=== PATIENT | male | born 1940 | race Caucasian/White ===

== ENCOUNTER 2018-11-17 17:55 | Inpatient (IN) | payer MEDICARE, OTHER ==
[~2018-11-17] VITALS: Ht 182.9 cm; Wt 64.9 kg
[2018-11-17 19:00] VITALS: BP 146/70
[2018-11-17] MEDS ORDERED: ACETAMINOPHEN 325 MG TABLET PO PRN (19:45)
[2018-11-17] MEDS ORDERED: DOCUSATE SODIUM 283 MG/5 ML MINI-ENEMA PR PRN (19:45)
[2018-11-17] MEDS ORDERED: QUEtiapine FUMARATE 25 MG TABLET PO PRN (20:00)
[2018-11-17] MEDS: DOCUSATE SODIUM 100 MG CAPSULE PO SCH (21:00)
[2018-11-17] MEDS: SENNA 187 MG TABLET PO SCH (21:00)
[2018-11-17 21:36] VITALS: BP 132/67
[2018-11-17] MEDS: TERAZOSIN HCL 1 MG CAPSULE PO SCH (21:58)
[2018-11-17 22:10] LABS: GLUCOMETER DEV NAME(LOC) 2WR.2; GLUCOSE,POINT OF CARE 201 MG/DL (70-110)
[2018-11-18] VITALS: BP 132/67
[2018-11-18 06:21] LABS: GLUCOMETER DEV NAME(LOC) 2WR.1B; GLUCOSE,POINT OF CARE 115 MG/DL (70-110)
[2018-11-18 07:33] LABS: BASOPHILS % (AUTO) 0.6 % (0.0-2.0); EOSINOPHILS % (AUTO) 2.4 % (1.0-6.0); HEMATOCRIT 31.9 % (41-53); HEMOGLOBIN 10.5 g/dL (13.5-17.5); LYMPHOCYTES % (AUTO) 13.8 % (22.0-44.0); MEAN CORPUSCULAR HEMOGLOBIN 29.2 pg (26.0-34.0); MEAN CORPUSCULAR HGB CONC 32.9 G/dL (31.0-37.0); MEAN CORPUSCULAR VOLUME 89 fL (80-100); MONOCYTES # (AUTO) 0.8 K/uL (0.1-1.0); MONOCYTES % (AUTO) 10.4 % (2.0-9.0); NEUTROPHILS # (AUTO) 5.5 K/uL (1.8-7.7); NEUTROPHILS % (AUTO) 72.8 % (40.0-70.0); PLATELET COUNT (AUTO) 294 K/uL (150-450); RED BLOOD CELL COUNT(AUTO) 3.58 MIL/uL (4.50-5.90); RED CELL DISTRIBUTION WIDTH 18.2 % (11.5-14.5)
[2018-11-18 08:01] LABS: ALANINE AMINOTRANSFERASE 17 U/L (12-78); ALBUMIN 2.8 g/dL (3.4-5.0); ALKALINE PHOSPHATASE 93 U/L (46-116); ANION GAP 14 mmol/L (8-16); ASPARTATE AMINOTRANSFERASE 16 U/L (15-37); BILIRUBIN,TOTAL 0.4 mg/dL (0.1-1.0); CALCIUM, TOTAL 9.3 mg/dL (8.8-10.5); CARBON DIOXIDE 26 mmol/L (22-29); CHLORIDE 98 mmol/L (98-107); CREATININE 0.72 mg/dL (0.60-1.30); GLUCOSE,RANDOM 129 mg/dL (70-110); SODIUM SERUM 138 mmol/L (136-145); TOTAL PROTEIN, SERUM 6.9 g/dL (6.4-8.2); UREA NITROGEN, BLOOD 10 mg/dL (7-18)
[2018-11-18 08:12] LABS: GLOMERULAR FILTR. RATE CALC > 60 mL/min (>60)
[2018-11-18] MEDS: MetFORMIN HCL 500 MG TABLET PO SCH ×2 (08:41→17:38)
[2018-11-18] MEDS: DOCUSATE SODIUM 100 MG CAPSULE PO SCH ×2 (08:50→21:00)
[2018-11-18] MEDS: FAMOTIDINE 20 MG TABLET PO SCH (08:50)
[2018-11-18] MEDS: ASPIRIN 81 MG CHEWABLE TABLET PO SCH (08:50)
[2018-11-18] MEDS ORDERED: SitaGLIPtin PHOSPHATE 25 MG TABLET PO SCH (09:00)
[2018-11-18] MEDS ORDERED: LISINOPRIL 5 MG TABLET PO SCH (09:00)
[2018-11-18 10:44] VITALS: BP 144/79
[2018-11-18] MEDS ORDERED: DEXTROSE 50%-WATER 25 GM/50 ML SYRINGE IVP PRN (11:45)
[2018-11-18] MEDS: INSULIN LISPRO 100 UNITS/ML SQ PRN (13:48)
[2018-11-18 15:00] VITALS: BP 139/74
[2018-11-18 15:16] LABS: GLUCOMETER DEV NAME(LOC) 2WR.2; GLUCOSE,POINT OF CARE 170 MG/DL (70-110)
[2018-11-18] MEDS: SitaGLIPtin PHOSPHATE 25 MG TABLET PO SCH (17:39)
[2018-11-18 18:16] LABS: GLUCOMETER DEV NAME(LOC) 2WR.2; GLUCOSE,POINT OF CARE 122 MG/DL (70-110)
[2018-11-18] MEDS: ROSUVASTATIN CALCIUM 10 MG TABLET PO SCH (20:42)
[2018-11-18] MEDS: TERAZOSIN HCL 1 MG CAPSULE PO SCH (20:42)
[2018-11-18] MEDS: SENNA 187 MG TABLET PO SCH (21:00)
[2018-11-18 21:26] LABS: GLUCOMETER DEV NAME(LOC) 2WR.2; GLUCOSE,POINT OF CARE 126 MG/DL (70-110)
[2018-11-19 02:55] VITALS: BP 156/58
[2018-11-19 06:06] LABS: GLUCOMETER DEV NAME(LOC) 2WR.1B; GLUCOSE,POINT OF CARE 102 MG/DL (70-110)
[2018-11-19] MEDS: MetFORMIN HCL 500 MG TABLET PO SCH ×2 (07:45→16:46)
[2018-11-19] MEDS: FAMOTIDINE 20 MG TABLET PO SCH (09:08)
[2018-11-19] MEDS: ASPIRIN 81 MG CHEWABLE TABLET PO SCH (09:08)
[2018-11-19] MEDS: LISINOPRIL 5 MG TABLET PO SCH (09:08)
[2018-11-19] MEDS ORDERED: SENNA 187 MG TABLET PO PRN (09:15)
[2018-11-19 09:43] VITALS: BP 132/73
[2018-11-19] MEDS ORDERED: FOSI20TA98 PO (10:37)
[2018-11-19] MEDS ORDERED: SITA25 PO (10:37)
[2018-11-19] MEDS ORDERED: LORA10TA7 PO (10:37)
[2018-11-19] MEDS ORDERED: ASPI81TA39 PO (10:37)
[2018-11-19] MEDS ORDERED: METF-960 PO (10:37)
[2018-11-19] MEDS ORDERED: ROSU10TA22 PO (10:37)
[2018-11-19] MEDS ORDERED: AMLO5TAB9 PO (10:37)
[2018-11-19 15:06] VITALS: BP 147/56
[2018-11-19 15:50] LABS: GLUCOMETER DEV NAME(LOC) 2WR.1B; GLUCOSE,POINT OF CARE 105 MG/DL (70-110)
[2018-11-19] MEDS: SitaGLIPtin PHOSPHATE 25 MG TABLET PO SCH (16:46)
[2018-11-19 17:26] LABS: GLUCOMETER DEV NAME(LOC) 2WR.2; GLUCOSE,POINT OF CARE 97 MG/DL (70-110)
[2018-11-19] MEDS: TERAZOSIN HCL 1 MG CAPSULE PO SCH (20:07)
[2018-11-19] MEDS: ROSUVASTATIN CALCIUM 10 MG TABLET PO SCH (20:07)
[2018-11-19 20:21] LABS: GLUCOMETER DEV NAME(LOC) 2WR.1B; GLUCOSE,POINT OF CARE 102 MG/DL (70-110)
[2018-11-20] VITALS: BP 143/74
[2018-11-20 05:36] LABS: GLUCOMETER DEV NAME(LOC) 2WR.2; GLUCOSE,POINT OF CARE 131 MG/DL (70-110)
[2018-11-20] MEDS: MetFORMIN HCL 500 MG TABLET PO SCH ×2 (07:40→17:40)
[2018-11-20] MEDS: FAMOTIDINE 20 MG TABLET PO SCH (07:41)
[2018-11-20] MEDS: LISINOPRIL 5 MG TABLET PO SCH (07:41)
[2018-11-20] MEDS: ASPIRIN 81 MG CHEWABLE TABLET PO SCH (07:41)
[2018-11-20 08:24] VITALS: BP 134/71
[2018-11-20 13:30] LABS: GLUCOMETER DEV NAME(LOC) 2WR.1B; GLUCOSE,POINT OF CARE 113 MG/DL (70-110)
[2018-11-20 15:43] VITALS: BP 125/72
[2018-11-20] MEDS: SitaGLIPtin PHOSPHATE 25 MG TABLET PO SCH (17:40)
[2018-11-20 18:22] LABS: GLUCOMETER DEV NAME(LOC) 2WR.2; GLUCOSE,POINT OF CARE 118 MG/DL (70-110)
[2018-11-20] MEDS: ROSUVASTATIN CALCIUM 10 MG TABLET PO SCH (20:45)
[2018-11-20] MEDS: TERAZOSIN HCL 1 MG CAPSULE PO SCH (20:45)
[2018-11-20 21:51] LABS: GLUCOMETER DEV NAME(LOC) 2WR.1B; GLUCOSE,POINT OF CARE 107 MG/DL (70-110)
[2018-11-20 23:48] VITALS: BP 144/76
[2018-11-21 06:01] LABS: GLUCOMETER DEV NAME(LOC) 2WR.2; GLUCOSE,POINT OF CARE 94 MG/DL (70-110)
[2018-11-21 07:01] VITALS: BP 135/69
[2018-11-21] MEDS: LISINOPRIL 5 MG TABLET PO SCH (07:46)
[2018-11-21] MEDS: MetFORMIN HCL 500 MG TABLET PO SCH ×2 (07:46→17:03)
[2018-11-21] MEDS: FAMOTIDINE 20 MG TABLET PO SCH (07:47)
[2018-11-21] MEDS: ASPIRIN 81 MG CHEWABLE TABLET PO SCH (07:47)
[2018-11-21 12:46] LABS: GLUCOMETER DEV NAME(LOC) 2WR.2; GLUCOSE,POINT OF CARE 108 MG/DL (70-110)
[2018-11-21 16:02] VITALS: BP 140/62
[2018-11-21] MEDS: SitaGLIPtin PHOSPHATE 25 MG TABLET PO SCH (17:03)
[2018-11-21 18:01] LABS: GLUCOMETER DEV NAME(LOC) 2WR.2; GLUCOSE,POINT OF CARE 110 MG/DL (70-110)
[2018-11-21] MEDS: TERAZOSIN HCL 1 MG CAPSULE PO SCH (20:17)
[2018-11-21] MEDS: ROSUVASTATIN CALCIUM 10 MG TABLET PO SCH (20:17)
[2018-11-21 21:36] LABS: GLUCOMETER DEV NAME(LOC) 2WR.1B; GLUCOSE,POINT OF CARE 106 MG/DL (70-110)
[2018-11-22] VITALS: BP 125/60
[2018-11-22 06:02] LABS: GLUCOMETER DEV NAME(LOC) 2WR.1B; GLUCOSE,POINT OF CARE 117 MG/DL (70-110)
[2018-11-22 07:05] VITALS: BP 135/62
[2018-11-22] MEDS: LISINOPRIL 5 MG TABLET PO SCH (07:58)
[2018-11-22] MEDS: MetFORMIN HCL 500 MG TABLET PO SCH ×2 (07:58→17:35)
[2018-11-22] MEDS: FAMOTIDINE 20 MG TABLET PO SCH (07:59)
[2018-11-22] MEDS: ASPIRIN 81 MG CHEWABLE TABLET PO SCH (07:59)
[2018-11-22] MEDS: SitaGLIPtin PHOSPHATE 25 MG TABLET PO SCH (17:35)
[2018-11-22] MEDS: INSULIN LISPRO 100 UNITS/ML SQ PRN (17:37)
[2018-11-22 18:25] LABS: GLUCOMETER DEV NAME(LOC) 2WR.1B; GLUCOSE,POINT OF CARE 101 MG/DL (70-110)
[2018-11-22 18:26] LABS: GLUCOMETER DEV NAME(LOC) 2WR.2; GLUCOSE,POINT OF CARE 152 MG/DL (70-110)
[2018-11-22 18:46] VITALS: BP 109/60
[2018-11-22] MEDS: TERAZOSIN HCL 1 MG CAPSULE PO SCH (21:00)
[2018-11-22] MEDS: ROSUVASTATIN CALCIUM 10 MG TABLET PO SCH (21:00)
[2018-11-23 03:00] VITALS: BP 139/60
[2018-11-23 05:15] LABS: GLUCOMETER DEV NAME(LOC) 2WR.1B; GLUCOSE,POINT OF CARE 106 MG/DL (70-110)
[2018-11-23 07:42] VITALS: BP 132/72
[2018-11-23] MEDS: FAMOTIDINE 20 MG TABLET PO SCH (07:50)
[2018-11-23] MEDS: ASPIRIN 81 MG CHEWABLE TABLET PO SCH (07:50)
[2018-11-23] MEDS: DOCUSATE SODIUM 100 MG CAPSULE PO PRN (07:50)
[2018-11-23] MEDS: MetFORMIN HCL 500 MG TABLET PO SCH ×2 (07:50→16:36)
[2018-11-23] MEDS: LISINOPRIL 5 MG TABLET PO SCH (07:51)
[2018-11-23 16:31] LABS: GLUCOMETER DEV NAME(LOC) 2WR.1B; GLUCOSE,POINT OF CARE 118 MG/DL (70-110)
[2018-11-23] MEDS: SitaGLIPtin PHOSPHATE 25 MG TABLET PO SCH (16:36)
[2018-11-23 16:48] VITALS: BP 127/53
[2018-11-23 17:56] LABS: GLUCOMETER DEV NAME(LOC) 2WR.2; GLUCOSE,POINT OF CARE 118 MG/DL (70-110)
[2018-11-23] MEDS: TERAZOSIN HCL 1 MG CAPSULE PO SCH (20:23)
[2018-11-23] MEDS: ROSUVASTATIN CALCIUM 10 MG TABLET PO SCH (20:23)
[2018-11-24 01:19] VITALS: BP 142/69
[2018-11-24 06:06] LABS: GLUCOMETER DEV NAME(LOC) 2WR.1B; GLUCOSE,POINT OF CARE 110 MG/DL (70-110)
[2018-11-24] MEDS: LISINOPRIL 5 MG TABLET PO SCH (07:49)
[2018-11-24] MEDS: FAMOTIDINE 20 MG TABLET PO SCH (07:50)
[2018-11-24] MEDS: MetFORMIN HCL 500 MG TABLET PO SCH ×2 (07:50→16:40)
[2018-11-24] MEDS: ASPIRIN 81 MG CHEWABLE TABLET PO SCH (07:50)
[2018-11-24 07:52] VITALS: BP 133/69
[2018-11-24 15:51] VITALS: BP 156/78
[2018-11-24] MEDS: SitaGLIPtin PHOSPHATE 25 MG TABLET PO SCH (16:40)
[2018-11-24] MEDS ORDERED: INFLUENZA VIRUS VACCINE QVS 2019-20 (3YR+)/PF 60 MCG/0.5 ML SYRINGE IM ONE (17:00)
[2018-11-24] MEDS: ROSUVASTATIN CALCIUM 10 MG TABLET PO SCH (21:39)
[2018-11-24] MEDS: TERAZOSIN HCL 1 MG CAPSULE PO SCH (21:39)
[2018-11-25 00:26] LABS: GLUCOMETER DEV NAME(LOC) 2WR.2; GLUCOSE,POINT OF CARE 107 MG/DL (70-110)
[2018-11-25 02:00] VITALS: BP 142/65
[2018-11-25 07:56] VITALS: BP 135/66
[2018-11-25] MEDS: MetFORMIN HCL 500 MG TABLET PO SCH ×2 (08:29→17:27)
[2018-11-25] MEDS: ASPIRIN 81 MG CHEWABLE TABLET PO SCH (08:30)
[2018-11-25] MEDS: FAMOTIDINE 20 MG TABLET PO SCH (08:30)
[2018-11-25] MEDS: LISINOPRIL 5 MG TABLET PO SCH (08:30)
[2018-11-25 14:46] LABS: GLUCOMETER DEV NAME(LOC) 2WR.1B; GLUCOSE,POINT OF CARE 96 MG/DL (70-110)
[2018-11-25 16:50] VITALS: BP 136/70
[2018-11-25] MEDS: SitaGLIPtin PHOSPHATE 25 MG TABLET PO SCH (17:27)
[2018-11-25] MEDS: ROSUVASTATIN CALCIUM 10 MG TABLET PO SCH (20:48)
[2018-11-25] MEDS: TERAZOSIN HCL 1 MG CAPSULE PO SCH (20:48)
[2018-11-26 01:47] VITALS: BP 134/66
[2018-11-26 06:46] LABS: GLUCOMETER DEV NAME(LOC) 2WR.2; GLUCOSE,POINT OF CARE 113 MG/DL (70-110)
[2018-11-26 07:10] VITALS: BP 124/66
[2018-11-26] MEDS: ASPIRIN 81 MG CHEWABLE TABLET PO SCH (07:54)
[2018-11-26] MEDS: FAMOTIDINE 20 MG TABLET PO SCH (07:54)
[2018-11-26] MEDS: MetFORMIN HCL 500 MG TABLET PO SCH ×2 (07:54→17:22)
[2018-11-26] MEDS: LISINOPRIL 5 MG TABLET PO SCH (07:54)
[2018-11-26 16:00] VITALS: BP 138/70
[2018-11-26] MEDS: SitaGLIPtin PHOSPHATE 25 MG TABLET PO SCH (17:22)
[2018-11-26] MEDS: ROSUVASTATIN CALCIUM 10 MG TABLET PO SCH (20:26)
[2018-11-26] MEDS: TERAZOSIN HCL 1 MG CAPSULE PO SCH (20:26)
[2018-11-26 20:29] VITALS: BP 140/82
[2018-11-26 23:32] VITALS: BP 122/58
[2018-11-27 06:16] LABS: GLUCOMETER DEV NAME(LOC) 2WR.2; GLUCOSE,POINT OF CARE 124 MG/DL (70-110)
[2018-11-27 07:36] VITALS: BP 124/64
[2018-11-27] MEDS: MetFORMIN HCL 500 MG TABLET PO SCH ×2 (07:54→16:54)
[2018-11-27] MEDS: FAMOTIDINE 20 MG TABLET PO SCH (07:58)
[2018-11-27] MEDS: LISINOPRIL 5 MG TABLET PO SCH (07:58)
[2018-11-27] MEDS: ASPIRIN 81 MG CHEWABLE TABLET PO SCH (07:58)
[2018-11-27] MEDS: SitaGLIPtin PHOSPHATE 25 MG TABLET PO SCH (16:54)
[2018-11-27 18:26] VITALS: BP 128/76
[2018-11-27] MEDS: ROSUVASTATIN CALCIUM 10 MG TABLET PO SCH (20:25)
[2018-11-27] MEDS: TERAZOSIN HCL 1 MG CAPSULE PO SCH (20:25)
[2018-11-28 01:03] VITALS: BP 136/60
[2018-11-28 06:31] LABS: GLUCOMETER DEV NAME(LOC) 2WR.1B; GLUCOSE,POINT OF CARE 127 MG/DL (70-110)
[2018-11-28 07:22] VITALS: BP 129/70
[2018-11-28] MEDS: FAMOTIDINE 20 MG TABLET PO SCH (07:57)
[2018-11-28] MEDS: MetFORMIN HCL 500 MG TABLET PO SCH ×2 (07:57→16:52)
[2018-11-28] MEDS: DOCUSATE SODIUM 100 MG CAPSULE PO PRN (07:57)
[2018-11-28] MEDS: LISINOPRIL 5 MG TABLET PO SCH (07:57)
[2018-11-28] MEDS: ASPIRIN 81 MG CHEWABLE TABLET PO SCH (07:57)
[2018-11-28 15:35] VITALS: BP 127/63
[2018-11-28] MEDS: SitaGLIPtin PHOSPHATE 25 MG TABLET PO SCH (16:51)
[2018-11-28] MEDS: TERAZOSIN HCL 1 MG CAPSULE PO SCH (21:06)
[2018-11-28] MEDS: ROSUVASTATIN CALCIUM 10 MG TABLET PO SCH (21:07)
[2018-11-29 00:23] VITALS: BP 142/69
[2018-11-29] MEDS ORDERED: LISI-660 PO (04:04)
[2018-11-29] MEDS ORDERED: FAMO20 PO (04:06)
[2018-11-29] MEDS ORDERED: TERA1CAP7 PO (04:06)
[2018-11-29 06:05] LABS: GLUCOMETER DEV NAME(LOC) 2WR.1B; GLUCOSE,POINT OF CARE 112 MG/DL (70-110)
[2018-11-29 07:20] VITALS: BP 128/76
[2018-11-29] MEDS: ASPIRIN 81 MG CHEWABLE TABLET PO SCH (07:54)
[2018-11-29] MEDS: MetFORMIN HCL 500 MG TABLET PO SCH (07:54)
[2018-11-29] MEDS: FAMOTIDINE 20 MG TABLET PO SCH (07:54)
[2018-11-29] MEDS: LISINOPRIL 5 MG TABLET PO SCH (07:54)
== END 2018-11-29 13:15 | disposition home or self-care (01) | DRG 85 ==
LOC: 2WR 17:55
PROVIDERS: ADMIT Physical Medicine & Rehabilitation; ATTEND Physical Medicine & Rehabilitation
DX: S06.6X0A Traumatic subarachnoid hemorrhage without loss of consciousness, initial encounter (principal); J96.02 Acute respiratory failure with hypercapnia; S06.5X0A Traumatic subdural hemorrhage without loss of consciousness, initial encounter; S02.19XA Other fracture of base of skull, initial encounter for closed fracture; E11.9 Type 2 diabetes mellitus without complications; R13.12 Dysphagia, oropharyngeal phase; E78.5 Hyperlipidemia, unspecified; I10 Essential (primary) hypertension; I25.10 Atherosclerotic heart disease of native coronary artery without angina pectoris; K59.00 Constipation, unspecified; Z79.899 Other long term (current) drug therapy; Z87.820 Personal history of traumatic brain injury; Z91.81 History of falling; Z93.1 Gastrostomy status; Z98.61 Coronary angioplasty status; Z23 Encounter for immunization; N31.9 Neuromuscular dysfunction of bladder, unspecified; R26.9 Unspecified abnormalities of gait and mobility; Z88.1 Allergy status to other antibiotic agents; Z88.8 Allergy status to other drugs, medicaments and biological substances
CPT/HCPCS: 70450; 87081; 90686; 92507; 92508; 92523; 97110; 97112; 97116; 97150; 97162; 97166; 97530; 97535; 99366

== ENCOUNTER 2018-12-06 17:42 | Inpatient (IN) | payer MEDICARE, OTHER ==
[~2018-12-06] VITALS: Ht 177.8 cm; Wt 64.4 kg
[~2018-12-06 17:42] MED LIST: ASPI81TA39 PO; FAMO20 PO; LISI-660 PO; METF-960 PO; ROSU10TA22 PO; SITA25 PO; TERA1CAP7 PO
[2018-12-06] MEDS ORDERED: MELATONIN 5 MG TABLET PO PRN (20:00)
[2018-12-06] MEDS ORDERED: ACETAMINOPHEN 325 MG TABLET PO PRN (20:00)
[2018-12-06] MEDS ORDERED: SENNA 187 MG TABLET PO SCH (21:00)
[2018-12-06] MEDS ORDERED: DOCUSATE SODIUM 100 MG CAPSULE PO SCH (21:00)
[2018-12-06] MEDS: LevETIRAcetam 500 MG TABLET PO SCH (21:16)
[2018-12-06] MEDS: TERAZOSIN HCL 1 MG CAPSULE PO SCH (21:16)
[2018-12-06] MEDS: ROSUVASTATIN CALCIUM 10 MG TABLET PO SCH (21:16)
[2018-12-06 21:22] VITALS: BP 136/75
[2018-12-06] MEDS ORDERED: SENNA 187 MG TABLET PO PRN (23:00)
[2018-12-07 04:00] VITALS: BP 130/70
[2018-12-07] MEDS: FAMOTIDINE 20 MG TABLET PO SCH (05:57)
[2018-12-07 06:18] LABS: GLUCOMETER DEV NAME(LOC) 2WR.2; GLUCOSE,POINT OF CARE 149 MG/DL (70-110)
[2018-12-07 06:44] LABS: BASOPHILS % (AUTO) 1.1 % (0.0-2.0); EOSINOPHILS % (AUTO) 3.3 % (1.0-6.0); HEMATOCRIT 34.3 % (41-53); HEMOGLOBIN 11.4 g/dL (13.5-17.5); LYMPHOCYTES # (AUTO) 1.4 K/uL (1.0-4.8); LYMPHOCYTES % (AUTO) 20.9 % (22.0-44.0); MEAN CORPUSCULAR HEMOGLOBIN 28.8 pg (26.0-34.0); MEAN CORPUSCULAR HGB CONC 33.3 G/dL (31.0-37.0); MEAN CORPUSCULAR VOLUME 86 fL (80-100); MONOCYTES # (AUTO) 0.6 K/uL (0.1-1.0); MONOCYTES % (AUTO) 9.3 % (2.0-9.0); NEUTROPHILS # (AUTO) 4.5 K/uL (1.8-7.7); NEUTROPHILS % (AUTO) 65.4 % (40.0-70.0); PLATELET COUNT (AUTO) 402 K/uL (150-450); RED BLOOD CELL COUNT(AUTO) 3.97 MIL/uL (4.50-5.90); RED CELL DISTRIBUTION WIDTH 16.9 % (11.5-14.5)
[2018-12-07 06:59] LABS: ALANINE AMINOTRANSFERASE 19 U/L (12-78); ALBUMIN 2.8 g/dL (3.4-5.0); ALKALINE PHOSPHATASE 67 U/L (46-116); ANION GAP 8 mmol/L (8-16); ASPARTATE AMINOTRANSFERASE 18 U/L (15-37); BILIRUBIN,TOTAL 0.3 mg/dL (0.1-1.0); CALCIUM, TOTAL 8.9 mg/dL (8.8-10.5); CARBON DIOXIDE 26 mmol/L (22-29); CHLORIDE 102 mmol/L (98-107); GLUCOSE,RANDOM 147 mg/dL (70-110); POTASSIUM 3.9 mmol/L (3.5-5.1); SODIUM SERUM 136 mmol/L (136-145); TOTAL PROTEIN, SERUM 6.8 g/dL (6.4-8.2)
[2018-12-07 07:00] LABS: GLOMERULAR FILTR. RATE CALC > 60 mL/min (>60)
[2018-12-07 07:05] LABS: UREA NITROGEN, BLOOD 10 mg/dL (7-18)
[2018-12-07] MEDS ORDERED: ASPIRIN 81 MG EC TABLET PO SCH (07:30)
[2018-12-07] MEDS: MetFORMIN HCL 500 MG TABLET PO SCH ×2 (08:00→17:29)
[2018-12-07] MEDS: LevETIRAcetam 500 MG TABLET PO SCH ×2 (08:01→20:40)
[2018-12-07] MEDS: SitaGLIPtin PHOSPHATE 25 MG TABLET PO SCH (08:01)
[2018-12-07] MEDS: LISINOPRIL 5 MG TABLET PO SCH (08:02)
[2018-12-07] MEDS: DOCUSATE SODIUM 100 MG CAPSULE PO PRN (08:02)
[2018-12-07 09:49] VITALS: BP 141/72
[2018-12-07] MEDS ORDERED: LevETIRAcetam 500 MG TABLET PO SCH (11:45)
[2018-12-07 16:04] VITALS: BP 131/71
[2018-12-07 18:32] LABS: GLUCOMETER DEV NAME(LOC) 2WR.2; GLUCOSE,POINT OF CARE 132 MG/DL (70-110)
[2018-12-07] MEDS: TERAZOSIN HCL 1 MG CAPSULE PO SCH (20:40)
[2018-12-07] MEDS: ROSUVASTATIN CALCIUM 10 MG TABLET PO SCH (20:40)
[2018-12-08 00:26] VITALS: BP 134/55
[2018-12-08] MEDS: FAMOTIDINE 20 MG TABLET PO SCH (05:43)
[2018-12-08 05:47] LABS: GLUCOMETER DEV NAME(LOC) 2WR.2; GLUCOSE,POINT OF CARE 126 MG/DL (70-110)
[2018-12-08] MEDS: MetFORMIN HCL 500 MG TABLET PO SCH ×2 (07:48→17:46)
[2018-12-08] MEDS: SitaGLIPtin PHOSPHATE 25 MG TABLET PO SCH (07:48)
[2018-12-08] MEDS: LevETIRAcetam 500 MG TABLET PO SCH ×2 (07:49→20:28)
[2018-12-08] MEDS: LISINOPRIL 5 MG TABLET PO SCH (07:49)
[2018-12-08 08:42] VITALS: BP 138/73
[2018-12-08 16:09] VITALS: BP 106/57
[2018-12-08] MEDS: TERAZOSIN HCL 1 MG CAPSULE PO SCH (20:28)
[2018-12-08] MEDS: ROSUVASTATIN CALCIUM 10 MG TABLET PO SCH (20:28)
[2018-12-08 21:46] LABS: GLUCOMETER DEV NAME(LOC) 2WR.1B; GLUCOSE,POINT OF CARE 110 MG/DL (70-110)
[2018-12-09 00:26] VITALS: BP 103/54
[2018-12-09] MEDS: FAMOTIDINE 20 MG TABLET PO SCH (05:44)
[2018-12-09 05:50] LABS: GLUCOMETER DEV NAME(LOC) 2WR.2; GLUCOSE,POINT OF CARE 132 MG/DL (70-110)
[2018-12-09 07:40] VITALS: BP 137/65
[2018-12-09] MEDS: SitaGLIPtin PHOSPHATE 25 MG TABLET PO SCH (08:05)
[2018-12-09] MEDS: LISINOPRIL 5 MG TABLET PO SCH (08:05)
[2018-12-09] MEDS: LevETIRAcetam 500 MG TABLET PO SCH ×2 (08:05→20:06)
[2018-12-09] MEDS: MetFORMIN HCL 500 MG TABLET PO SCH ×2 (08:05→17:33)
[2018-12-09 15:52] VITALS: BP 116/64
[2018-12-09 17:47] LABS: GLUCOMETER DEV NAME(LOC) 2WR.1B; GLUCOSE,POINT OF CARE 112 MG/DL (70-110)
[2018-12-09] MEDS: ROSUVASTATIN CALCIUM 10 MG TABLET PO SCH (20:06)
[2018-12-09] MEDS: TERAZOSIN HCL 1 MG CAPSULE PO SCH (20:06)
[2018-12-10 02:26] VITALS: BP 126/58
[2018-12-10] MEDS: FAMOTIDINE 20 MG TABLET PO SCH (05:27)
[2018-12-10 06:22] LABS: GLUCOMETER DEV NAME(LOC) 2WR.2; GLUCOSE,POINT OF CARE 115 MG/DL (70-110)
[2018-12-10 08:06] VITALS: BP 138/63
[2018-12-10] MEDS: SitaGLIPtin PHOSPHATE 25 MG TABLET PO SCH (08:12)
[2018-12-10] MEDS: MetFORMIN HCL 500 MG TABLET PO SCH ×2 (08:13→17:27)
[2018-12-10] MEDS: LevETIRAcetam 500 MG TABLET PO SCH ×2 (08:13→20:04)
[2018-12-10] MEDS: LISINOPRIL 5 MG TABLET PO SCH (08:13)
[2018-12-10 16:02] VITALS: BP 122/67
[2018-12-10 18:37] LABS: GLUCOMETER DEV NAME(LOC) 2WR.2; GLUCOSE,POINT OF CARE 120 MG/DL (70-110)
[2018-12-10] MEDS: TERAZOSIN HCL 1 MG CAPSULE PO SCH (20:04)
[2018-12-10] MEDS: ROSUVASTATIN CALCIUM 10 MG TABLET PO SCH (20:04)
[2018-12-11 00:23] VITALS: BP 137/71
[2018-12-11] MEDS: FAMOTIDINE 20 MG TABLET PO SCH (05:27)
[2018-12-11 05:42] LABS: GLUCOMETER DEV NAME(LOC) 2WR.1B; GLUCOSE,POINT OF CARE 131 MG/DL (70-110)
[2018-12-11] MEDS: MetFORMIN HCL 500 MG TABLET PO SCH ×2 (07:52→17:33)
[2018-12-11] MEDS: LISINOPRIL 5 MG TABLET PO SCH (07:53)
[2018-12-11] MEDS: LevETIRAcetam 500 MG TABLET PO SCH ×2 (07:53→20:30)
[2018-12-11] MEDS: SitaGLIPtin PHOSPHATE 25 MG TABLET PO SCH (07:53)
[2018-12-11 08:45] VITALS: BP 132/72
[2018-12-11 16:04] VITALS: BP 134/66
[2018-12-11 17:46] LABS: GLUCOMETER DEV NAME(LOC) 2WR.2; GLUCOSE,POINT OF CARE 133 MG/DL (70-110)
[2018-12-11 20:28] VITALS: BP 137/73
[2018-12-11] MEDS: ROSUVASTATIN CALCIUM 10 MG TABLET PO SCH (20:30)
[2018-12-11] MEDS: TERAZOSIN HCL 1 MG CAPSULE PO SCH (20:30)
[2018-12-11] MEDS ORDERED: MELATONIN 5 MG TABLET PO SCH (21:00)
[2018-12-12 00:24] VITALS: BP 141/70
[2018-12-12] MEDS: FAMOTIDINE 20 MG TABLET PO SCH (05:30)
[2018-12-12 06:12] LABS: GLUCOMETER DEV NAME(LOC) 2WR.2; GLUCOSE,POINT OF CARE 116 MG/DL (70-110)
[2018-12-12 07:25] VITALS: BP 148/75
[2018-12-12] MEDS: DOCUSATE SODIUM 100 MG CAPSULE PO PRN (07:55)
[2018-12-12] MEDS: LevETIRAcetam 500 MG TABLET PO SCH ×2 (07:55→20:10)
[2018-12-12] MEDS: LISINOPRIL 5 MG TABLET PO SCH (07:55)
[2018-12-12] MEDS: SitaGLIPtin PHOSPHATE 25 MG TABLET PO SCH (07:55)
[2018-12-12] MEDS: MetFORMIN HCL 500 MG TABLET PO SCH ×2 (07:56→18:00)
[2018-12-12 15:37] VITALS: BP 131/62
[2018-12-12 17:21] LABS: GLUCOMETER DEV NAME(LOC) 2WR.1B; GLUCOSE,POINT OF CARE 112 MG/DL (70-110)
[2018-12-12 20:08] VITALS: BP 144/72
[2018-12-12] MEDS: ROSUVASTATIN CALCIUM 10 MG TABLET PO SCH (20:10)
[2018-12-12] MEDS: TERAZOSIN HCL 1 MG CAPSULE PO SCH (20:10)
[2018-12-12] MEDS ORDERED: QUEtiapine FUMARATE 25 MG TABLET PO SCH ×2 (21:00)
[2018-12-13 01:21] VITALS: BP 115/55
[2018-12-13] MEDS ORDERED: LORazepam 2 MG/ML VIAL IM STA (01:54)
[2018-12-13 06:37] LABS: GLUCOMETER DEV NAME(LOC) 2WR.1B; GLUCOSE,POINT OF CARE 100 MG/DL (70-110)
[2018-12-13 07:34] VITALS: BP 139/68
[2018-12-13] MEDS: FAMOTIDINE 20 MG TABLET PO SCH (09:20)
[2018-12-13] MEDS: LISINOPRIL 5 MG TABLET PO SCH (09:20)
[2018-12-13] MEDS: SitaGLIPtin PHOSPHATE 25 MG TABLET PO SCH (09:20)
[2018-12-13] MEDS: MetFORMIN HCL 500 MG TABLET PO SCH ×2 (09:20→17:14)
[2018-12-13] MEDS: LevETIRAcetam 500 MG TABLET PO SCH ×2 (09:20→20:44)
[2018-12-13 16:05] VITALS: BP 127/64
[2018-12-13 18:16] LABS: GLUCOMETER DEV NAME(LOC) 2WR.2; GLUCOSE,POINT OF CARE 86 MG/DL (70-110)
[2018-12-13] MEDS: TERAZOSIN HCL 1 MG CAPSULE PO SCH (20:44)
[2018-12-13] MEDS: ROSUVASTATIN CALCIUM 10 MG TABLET PO SCH (20:44)
[2018-12-13 20:45] VITALS: BP 153/73
[2018-12-13] MEDS: QUEtiapine FUMARATE 25 MG TABLET PO SCH (22:07)
[2018-12-13 22:09] VITALS: BP 127/61
[2018-12-14 00:32] VITALS: BP 146/68
[2018-12-14] MEDS: FAMOTIDINE 20 MG TABLET PO SCH (05:36)
[2018-12-14 06:27] LABS: GLUCOMETER DEV NAME(LOC) 2WR.2; GLUCOSE,POINT OF CARE 91 MG/DL (70-110)
[2018-12-14] MEDS: MetFORMIN HCL 500 MG TABLET PO SCH ×2 (07:45→17:37)
[2018-12-14] MEDS: SitaGLIPtin PHOSPHATE 25 MG TABLET PO SCH (07:45)
[2018-12-14] MEDS: LevETIRAcetam 500 MG TABLET PO SCH ×2 (07:45→22:10)
[2018-12-14] MEDS: LISINOPRIL 5 MG TABLET PO SCH (07:45)
[2018-12-14 09:27] VITALS: BP 137/66
[2018-12-14 16:50] VITALS: BP 117/55
[2018-12-14 18:22] LABS: GLUCOMETER DEV NAME(LOC) 2WR.2; GLUCOSE,POINT OF CARE 88 MG/DL (70-110)
[2018-12-14] MEDS: QUEtiapine FUMARATE 25 MG TABLET PO SCH (22:10)
[2018-12-14] MEDS: TERAZOSIN HCL 1 MG CAPSULE PO SCH (22:10)
[2018-12-14] MEDS: ROSUVASTATIN CALCIUM 10 MG TABLET PO SCH (22:10)
[2018-12-15 02:55] VITALS: BP 119/59
[2018-12-15] MEDS: FAMOTIDINE 20 MG TABLET PO SCH (05:45)
[2018-12-15 06:21] LABS: GLUCOMETER DEV NAME(LOC) 2WR.1B; GLUCOSE,POINT OF CARE 121 MG/DL (70-110)
[2018-12-15 08:39] VITALS: BP 128/68
[2018-12-15] MEDS: LISINOPRIL 5 MG TABLET PO SCH (09:32)
[2018-12-15] MEDS: LevETIRAcetam 500 MG TABLET PO SCH ×2 (09:32→21:56)
[2018-12-15] MEDS: SitaGLIPtin PHOSPHATE 25 MG TABLET PO SCH (09:32)
[2018-12-15] MEDS: MetFORMIN HCL 500 MG TABLET PO SCH ×2 (09:32→17:40)
[2018-12-15 15:54] VITALS: BP 105/54
[2018-12-15 18:26] LABS: GLUCOMETER DEV NAME(LOC) 2WR.2; GLUCOSE,POINT OF CARE 89 MG/DL (70-110)
[2018-12-15] MEDS: QUEtiapine FUMARATE 25 MG TABLET PO SCH (21:56)
[2018-12-15] MEDS: TERAZOSIN HCL 1 MG CAPSULE PO SCH (21:56)
[2018-12-15] MEDS: ROSUVASTATIN CALCIUM 10 MG TABLET PO SCH (21:56)
[2018-12-15 22:02] VITALS: BP 142/72
[2018-12-16] MEDS ORDERED: QUET25TA PO (00:39)
[2018-12-16] MEDS ORDERED: LEVE500T53 PO (00:39)
[2018-12-16 00:54] VITALS: BP 116/56
[2018-12-16] MEDS: FAMOTIDINE 20 MG TABLET PO SCH (05:28)
[2018-12-16 06:07] LABS: GLUCOMETER DEV NAME(LOC) 2WR.2; GLUCOSE,POINT OF CARE 118 MG/DL (70-110)
[2018-12-16] MEDS: SitaGLIPtin PHOSPHATE 25 MG TABLET PO SCH (07:57)
[2018-12-16] MEDS: MetFORMIN HCL 500 MG TABLET PO SCH (07:57)
[2018-12-16] MEDS: LevETIRAcetam 500 MG TABLET PO SCH (07:58)
[2018-12-16] MEDS: LISINOPRIL 5 MG TABLET PO SCH (07:59)
[2018-12-16 08:00] VITALS: BP 136/74
[2018-12-16] MEDS ORDERED: SODIUM CL IRRIG SOLN BOTTLE 250 ML IRRIG ONE (10:49)
== END 2018-12-16 17:00 | disposition home health service (06) | DRG 86 ==
LOC: 2WR 19:25 → EDBD 19:25
PROVIDERS: ADMIT Physical Medicine & Rehabilitation; ATTEND Physical Medicine & Rehabilitation
DX: S06.5X0A Traumatic subdural hemorrhage without loss of consciousness, initial encounter (principal); E87.1 Hypo-osmolality and hyponatremia; S06.6X0A Traumatic subarachnoid hemorrhage without loss of consciousness, initial encounter; N40.0 Benign prostatic hyperplasia without lower urinary tract symptoms; E11.9 Type 2 diabetes mellitus without complications; E78.5 Hyperlipidemia, unspecified; I10 Essential (primary) hypertension; G47.00 Insomnia, unspecified; I25.10 Atherosclerotic heart disease of native coronary artery without angina pectoris; W18.39XA Other fall on same level, initial encounter; S02.19XA Other fracture of base of skull, initial encounter for closed fracture; Z87.891 Personal history of nicotine dependence; Z87.820 Personal history of traumatic brain injury; Z88.2 Allergy status to sulfonamides; Z88.8 Allergy status to other drugs, medicaments and biological substances; Y93.89 Activity, other specified; Y92.89 Other specified places as the place of occurrence of the external cause; Y99.8 Other external cause status; Z95.5 Presence of coronary angioplasty implant and graft; Z98.49 Cataract extraction status, unspecified eye
CPT/HCPCS: 70450; 87081; 92507; 92523; 93970; 97110; 97112; 97116; 97162; 97166; 97530; 97535; 99366; J2060